=== PATIENT | female | born 1975 | race Caucasian/White ===

== ENCOUNTER → 2021-12-03 | Outpatient (CLI) | payer OTHER ==
[~2021-12-03] MED LIST: BIRTH CONTROL PO; CLARITIN10 MG PO; HYDROCODON-ACE1 EAC6 PO; IBU800 MG PO; JARDIANCE10 MG PO; KLONOPIN1 MG PO; LASIX20 MG PO; LIPITOR10 MG PO; LOPRESSOR 25 MG25 MG PO; LOSARTAN-HCTZ1 EAC1 PO; METFORMIN HCL1000 MG PO; NEURONTIN800 MG PO; NITROSTAT0.4 MG SL; NORVASC10 MG PO; OMEPRAZOLE20 M1 PO; ONDANSETRON ODT4 MG PO; OZEMPIC1 MG/0.71 SC; VITAMIN B12 PO; VITAMIN C500 M4 PO; VITAMIN D21250 MCG PO
[2021-12-03 10:36] LABS: BUN/CREATININE RATIO 27 (0-10)
== END ==
LOC: OPSV2 08:55
PROVIDERS: Orthopaedic Surgery
DX: Z01.818 Encounter for other preprocedural examination (principal)
CPT/HCPCS: 36415; 80048; 93005

== ENCOUNTER → 2021-12-07 | Day surgery (SDC) | payer OTHER | END | disposition home or self-care (01) | LOC: OR 05:21 | DX: M65.331 Trigger finger, right middle finger (principal); I10 Essential (primary) hypertension; E11.9 Type 2 diabetes mellitus without complications; F41.9 Anxiety disorder, unspecified; E66.9 Obesity, unspecified; E78.5 Hyperlipidemia, unspecified; K21.9 Gastro-esophageal reflux disease without esophagitis; M19.90 Unspecified osteoarthritis, unspecified site; F32.A Depression, unspecified; G47.30 Sleep apnea, unspecified; Z99.89 Dependence on other enabling machines and devices; Z79.84 Long term (current) use of oral hypoglycemic drugs; Z79.899 Other long term (current) drug therapy | CPT/HCPCS: 82962; 84703; J0690; J1100; J1885; J2001; J2250; J2405; J2704; J3010; J7030 ==